=== PATIENT | female | born 1940 | race Caucasian/White ===

== ENCOUNTER 2018-01-10 16:21 | Emergency (ER) | payer MEDICARE, OTHER ==
--- NOTE | 2018-01-10 16:56 | ER Report ---
History and Physical Time Seen By MD: 16:35 Hx. of Stated Complaint: SOB X 2 DAYS, TRAVELING FROM [place] (ROSEANNE KRUEGER MD) HPI/ROS CHIEF COMPLAINT: shortness of breath HISTORY OF PRESENT ILLNESS: Patient is currently traveling from [place], planning on staying in [place] one week. She has been dealing with sinus congestion as well as kidney infection for which she states she was given Augmentin and last took one week ago. In the last week she has noted ongoing nonproductive cough, chest pressure that is intermittent and usually lasts one minute at a time, and shortness of breath that began intermittently 3 days ago today the shortness of breath and chest pressure have been generally constant. Patient notes shortness of breath that is worse with exertion as well as chest pressure, she also notes that she woke up last night with shortness of breath. The chest pressure is mild radiates to between her shoulder blades and she notes that it radiated down her left arm 2 days ago. 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 She was given nitroglycerin pills for anginal chest pain but has not taken them at all. Patient notes that all symptoms are worse with cough and has deep nonproductive coughs. She notes that last night she woke up with fever and chills. She has not had significant new abdominal pain, swelling in legs, urinary symptoms. REVIEW OF SYSTEMS: Constitutional: above Eyes: No discharge. ENT: sore throat Cardiovascular: above Respiratory: above Gastrointestinal: No abdominal pain, no vomiting. Genitourinary: No hematuria. Musculoskeletal: no new back pain Skin: No rashes. Neurological: No headache. (ROSEANNE KRUEGER MD) Allergies: Coded Allergies: codeine (Verified Adverse Reaction, Unknown, NAUSEA/VOMITING, 01/10/18) Uncoded Allergies: BETA BLOCKERS (Adverse Reaction, Unknown, HALLUCINATIONS, 01/10/18) Home Meds Unable to Obtain Active Prescriptions or Reported Meds Reviewed Nurses Notes: Yes (ROSEANNE KRUEGER MD) Constitutional Vital Sign - Last 24 Hours 01/10/18 01/10/18 01/10/18 01/10/18 16:29 16:30 16:45 17:00 Temp 98.2 Pulse 80 79 75 Resp 16 13 11 B/P (MAP) 209/112 213/93 (133) 194/81 (118) Pulse Ox 91 92 93 O2 Delivery Room Air 01/10/18 01/10/18 01/10/18 01/10/18 17:15 17:30 17:45 18:15 Pulse 75 70 71 71 Resp 27 24 23 11 B/P (MAP) 185/80 (115) Pulse Ox 90 91 92 92 01/10/18 01/10/18 01/10/18 01/10/18 18:30 18:45 19:00 19:15 Pulse 70 74 78 72 Resp 9 13 B/P (MAP) 178/89 (118) Pulse Ox 91 92 90 94 01/10/18 01/10/18 01/10/18 01/10/18 19:15 19:30 19:45 20:00 Pulse 71 71 71 Resp 19 10 22 B/P (MAP) 161/73 (102) 164/81 (108) Pulse Ox 94 95 95 O2 Flow Rate 1.0 01/10/18 01/10/18 01/10/18 20:15 20:30 21:00 Pulse 78 72 73 Resp 19 18 11 B/P (MAP) 164/74 (104) 175/81 (112) Pulse Ox 95 94 95 (ROSEANNE COHN MD) Physical Exam General Appearance: The patient is alert, has no immediate need for airway protection and no signs of toxicity. Eyes: Pupils equal and round no pallor or injection. ENT, Mouth: Mucous membranes are moist. Respiratory: There are no retractions, lungs are clear to auscultation. Pt has deep, nonproductive cough. Cardiovascular: Regular rate and rhythm. Gastrointestinal: Abdomen is soft and non tender, no masses, bowel sounds normal. Neurological: alert, oriented, nad Skin: Warm and dry, no rashes. Musculoskeletal: Neck is supple non tender. No carotid bruits Extremities are nontender, and have full range of motion. Mild bilateral edema DIFFERENTIAL DIAGNOSIS: After history and physical exam differential diagnosis was considered for chest pain including but not limited to myocardial ischemia, pericarditis pulmonary embolus, chest wall pain, pleural inflammation and pulmonary infectious causes.shortness of breath including but not limited to pulmonary infectious process, COPD, asthma, pulmonary embolus and congestive heart failure, aortic dissection (ROSEANNE KRUEGER MD) Medical Decision Making Data Points Result Diagram: 01/10/182 01/10/181651 Laboratory Hematology Test 01/10/18 16:52 10/7/18 18:24 01/10/18 20:27 Red Blood Count 5.04 M/uL (4.17-5.56) Mean Corpuscular Volume 74.8 fL (80.0-96.0) Mean Corpuscular Hemoglobin 24.3 pg (26.0-33.0) Mean Corpuscular Hemoglobin Concent 32.6 g/dL (32.0-36.0) Red Cell Distribution Width 16.1 % (11.5-14.5) Mean Platelet Volume 7.0 fL (7.2-11.1) Neutrophils (%) (Auto) 61.0 % (39.4-72.5) Lymphocytes (%) (Auto) 29.9 % (17.6-49.6) Monocytes (%) (Auto) 7.4 % (4.1-12.4) Eosinophils (%) (Auto) 0.9 % (0.4-6.7) Basophils (%) (Auto) 0.8 % (0.3-1.4) Nucleated RBC Relative Count (auto) 0.0 /100WBC Neutrophils # (Auto) 6.1 K/uL (2.0-7.4) Lymphocytes # (Auto) 3.0 K/uL (1.3-3.6) Monocytes # (Auto) 0.7 K/uL (0.3-1.0) Eosinophils # (Auto) 0.1 K/uL (0.0-0.5) Basophils # (Auto) 0.1 K/uL (0.0-0.1) Nucleated RBC Absolute Count (auto) 0.00 K/uL Peripheral Blood Smear No Y/N D-Dimer Quantitative (PE/DVT) 0.75 ug/ml (0-0.50) Sodium Level 141 mmol/L (137-145) Potassium Level 3.4 mmol/L (3.5-5.0) Chloride Level 103 mmol/L (98-107) Carbon Dioxide Level 25 mmol/L (22-31) Blood Urea Nitrogen 12 mg/dl (7-18) Creatinine 0.70 mg/dl (0.52-1.04) Glomerular Filtration Rate Calc > 60.0 Random Glucose 184 mg/dl (75-110) Calcium Level 9.2 mg/dl (8.4-10.2) Total Bilirubin 0.3 mg/dl (0.2-1.3) Aspartate Amino Transf (AST/SGOT) 19 U/L (0-35) Alanine Aminotransferase (ALT/SGPT) 30 U/L (0-56) Alkaline Phosphatase 81 U/L (0-126) B-Type Natriuretic Peptide 166 pg/ml (0-100) Total Protein 7.4 g/dl (6.3-8.2) Albumin 3.9 g/dl (3.5-5.0) Lipase 73 U/L (23-300) Urine Color Straw Urine Clarity Clear Urine pH 7.0 pH (4.8-9.5) Urine Specific [place] 1.027 Urine Protein Negative mg/dL (NEGATIVE) Urine Glucose (UA) Negative mg/dL (NEGATIVE) Urine Ketones Negative mg/dL (NEGATIVE) Urine Blood Negative (NEGATIVE) Urine Nitrite Negative (NEGATIVE) Urine Bilirubin Negative (NEGATIVE) Urine Urobilinogen Negative mg/dL (0.2-1.9) Urine Leukocyte Esterase Small (NEGATIVE) Urine RBC 1 /HPF (0-2/HPF) Urine WBC 15 /HPF (0-5/HPF) Urine Squamous Epithelial Cells None /LPF (</=FEW) Urine Bacteria Negative /HPF (NONE-FEW) Urine Mucus None /HPF (NONE-FEW) Troponin I 0.014 ng/ml Chemistry Test 01/10/18 16:52 01/10/18 18:24 01/10/18 20:27 White Blood Count 10.0 k/uL (4.5-11.0) Red Blood Count 5.04 M/uL (4.17-5.56) Hemoglobin 12.3 g/dL (12.0-16.0) Hematocrit 37.7 % (34.0-47.0) Mean Corpuscular Volume 74.8 fL (80.0-96.0) Mean Corpuscular Hemoglobin 24.3 pg (26.0-33.0) Mean Corpuscular Hemoglobin Concent 32.6 g/dL (32.0-36.0) Red Cell Distribution Width 16.1 % (11.5-14.5) Platelet Count 407 K/uL (150-450) Mean Platelet Volume 7.0 fL (7.2-11.1) Neutrophils (%) (Auto) 61.0 % (39.4-72.5) Lymphocytes (%) (Auto) 29.9 % (17.6-49.6) Monocytes (%) (Auto) 7.4 % (4.1-12.4) Eosinophils (%) (Auto) 0.9 % (0.4-6.7) Basophils (%) (Auto) 0.8 % (0.3-1.4) Nucleated RBC Relative Count (auto) 0.0 /100WBC Neutrophils # (Auto) 6.1 K/uL (2.0-7.4) Lymphocytes # (Auto) 3.0 K/uL (1.3-3.6) Monocytes # (Auto) 0.7 K/uL (0.3-1.0) Eosinophils # (Auto) 0.1 K/uL (0.0-0.5) Basophils # (Auto) 0.1 K/uL (0.0-0.1) Nucleated RBC Absolute Count (auto) 0.00 K/uL Peripheral Blood Smear No Y/N D-Dimer Quantitative (PE/DVT) 0.75 ug/ml (0-0.50) Glomerular Filtration Rate Calc > 60.0 Calcium Level 9.2 mg/dl (8.4-10.2) Total Bilirubin 0.3 mg/dl (0.2-1.3) Aspartate Amino Transf (AST/SGOT) 19 U/L (0-35) Alanine Aminotransferase (ALT/SGPT) 30 U/L (0-56) Alkaline Phosphatase 81 U/L (0-126) B-Type Natriuretic Peptide 166 pg/ml (0-100) Total Protein 7.4 g/dl (6.3-8.2) Albumin 3.9 g/dl (3.5-5.0) Lipase 73 U/L (23-300) Urine Color Straw Urine Clarity Clear Urine pH 7.0 pH (4.8-9.5) Urine Specific [place] 1.027 Urine Protein Negative mg/dL (NEGATIVE) Urine Glucose (UA) Negative mg/dL (NEGATIVE) Urine Ketones Negative mg/dL (NEGATIVE) Urine Blood Negative (NEGATIVE) Urine Nitrite Negative (NEGATIVE) Urine Bilirubin Negative (NEGATIVE) Urine Urobilinogen Negative mg/dL (0.2-1.9) Urine Leukocyte Esterase Small (NEGATIVE) Urine RBC 1 /HPF (0-2/HPF) Urine WBC 15 /HPF (0-5/HPF) Urine Squamous Epithelial Cells None /LPF (</=FEW) Urine Bacteria Negative /HPF (NONE-FEW) Urine Mucus None /HPF (NONE-FEW) Troponin I 0.014 ng/ml Coagulation Test 01/10/18 16:52 D-Dimer Quantitative (PE/DVT) 0.75 ug/ml Urinalysis Test 01/10/18 18:24 Urine Color Straw Urine Clarity Clear Urine pH 7.0 pH (4.8-9.5) Urine Specific [place] 1.027 Urine Protein Negative mg/dL (NEGATIVE) Urine Glucose (UA) Negative mg/dL (NEGATIVE) Urine Ketones Negative mg/dL (NEGATIVE) Urine Blood Negative (NEGATIVE) Urine Nitrite Negative (NEGATIVE) Urine Bilirubin Negative (NEGATIVE) Urine Urobilinogen Negative mg/dL (0.2-1.9) Urine Leukocyte Esterase Small (NEGATIVE) Urine RBC 1 /HPF (0-2/HPF) Urine WBC 15 /HPF (0-5/HPF) Urine Squamous Epithelial Cells None /LPF (</=FEW) Urine Bacteria Negative /HPF (NONE-FEW) Urine Mucus None /HPF (NONE-FEW) (ROSEANNE COHN MD) EKG/Imaging EKG Interpretation 12 lead EKG: Rhythm: normal sinus rhythm [place]: normal QRS: normal ST segments: < 5 mm depression 1, v6. No ST elevation [ ] Monitor Interpretation: Normal Sinus Rhythm Imaging X-ray: chest was obtained. I viewed the images myself on the PACS system. My interpretation of the images is: NACPD. The radiologist interpretation had no clinically significant variation from this interpretation. (ROSEANNE KRUEGER MD) Imaging FACILITY: [facility] PATIENT NAME: Jitendra Jenkins : 1940 MR: [id number] V: [id number] EXAM DATE: ORDERING PHYSICIAN: ROSEANNE KRUEGER TECHNOLOGIST: Location: [facility] Patient: Jitendra Jenkins : 1940 Visit/Account:[id number] Date of Sevice: 01/10/2018 EXAMINATION: CTA of the chest with IV contrast HISTORY: Shortness of breath. Elevated d-dimer. TECHNIQUE: Pulmonary embolus protocol - Thin axial CT images of the chest were obtained with IV contrast during maximal pulmonary arterial opacification. Reconstruction of the source data includes multiplanar 2D coronal and sagittal reconstructed images, and 3D coronal and sagittal MIP images. [employer] images have been stored on PACS. One of the following dose optimization techniques was utilized in the performance of this exam: Automated exposure control; adjustment of the mA and/or kV according to the patient's size; or use of an iterative reconstruction technique. Specific details can be referenced in the facility's radiology CT exam operational policy. Contrast: 75 mL of IV Isovue-370. COMPARISON: None. FINDINGS: Pulmonary arteries: The pulmonary arteries are moderately well opacified, without suspicious filling defect. Heart, aorta, and great vessels: Normal caliber thoracic aorta. Vascular calcifications, including coronary artery calcifications. Normal heart size. No pericardial effusion. Lungs and pleura: Mild scarring or atelectasis in the lung bases. Calcified granulomas in both lungs. No suspicious focal consolidation. The central airways are patent. No pleural effusion or pneumothorax. Mediastinum and ivelisse: Small hiatal hernia. Visualized upper abdomen: Calcified granulomas in the spleen. Cholecystectomy. Chest wall: Bilateral prepectoral breast implants. Bones: No acute osseous findings. Mild scattered degenerative changes along the thoracic spine. IMPRESSION: 1. No evidence of pulmonary embolism. 2. No other acute findings in the chest. 3. Mild scarring or atelectasis in the lung bases. 4. Small hiatal hernia. Report Dictated By: Julio Cunningham MD at 01/10/2018 6:16 PM Report E-Signed By: Julio Cunningham MD at 01/10/2018 6:26 PM WSN:[email or web address] (ROSEANNE COHN MD) ED Course/Re-evaluation ED Course 77-year-old female history of coronary artery disease status post CABG presents with cough, shortness breath, chills, chest pressure. Exam is nonfocal, and initial ED evaluation significant for a d-dimer which is positive. Given the recent road trip, concern for PE. CT ordered and patient at CT at time of turnover. Given chest pressure and history, recommend repeat troponin testing. With results of above we'll discuss with patient risks and benefits of admission versus discharge. (ROSEANNE KRUEGER MD) ED Course 01/10/2018 8:38:52 pm remained symptom-free CT scan negative for PE or other acute pathology. 2nd troponin being redrawn at this time. 01/10/2018 9:45:28 pm repeat troponin unchanged and negative. She remained symptom-free and wishes to go home. Plan at this time will be discharged home. Decision to Disposition Date: Jan 10, 2018 Decision to Disposition Time: 21:45 Turned Over 01/10/2018 6:27:34 pm Accepted patient at 6 PM this evening. Awaiting delta troponin as well as CT scan of the chest for PE. Patient is comfortable at this time no questions or concerns. (ROSEANNE COHN MD) Depart Departure Latest Vital Signs Vital Signs Date Time Temp Pulse Resp B/P (MAP) Pulse Ox O2 Delivery O2 Flow Rate FiO2 01/10/18 21:00 73 11 175/81 (112) 95 01/10/18 19:15 1.0 01/10/18 16:29 98.2 Room Air (ROSEANNE COHN MD) Impression: Primary Impression: Atypical chest pain Condition: Improved Disposition: HOME OR SELF-CARE New Scripts Unable to Obtain Active Prescriptions or Reported Meds Patient Instructions: Chest Pain (DC) Additional Instructions: Return to the emergency department if your symptoms return. ROSEANNE KRUEGER MD Jan 10, 2018 16:56 ROSEANNE COHN MD Jan 10, 2018 18:27
[2018-01-10 17:06] LABS: PLATELET COUNT, AUTOMATED 407 K/uL (150-450)
--- NOTE | 2018-01-10 17:21 | EKG ---
[place] [facility] [place] NAME: KRISS BURKS : [id number] MR: [id number] V: [id number] EXAM DATE: ORDERING PHYSICIAN: ROSEANNE KRUEGER TECHNOLOGIST: TIMOTHY Test Reason : SOB Blood Pressure : / mmHG Vent. Rate : 068 BPM Atrial Rate : 068 BPM P-R Int : 174 ms QRS Dur : 078 ms QT Int : 396 ms P-R-T Axes : -11 043 069 degrees QTc Int : 421 ms Normal sinus rhythm Nonspecific ST abnormality Abnormal ECG No previous ECGs available Confirmed by Kendell Beevrly ([id number]) on 01/11/2018 6:16:55 AM Referred By: PATI Confirmed By:Kendell Persaud
--- NOTE | 2018-01-10 17:28 | RADIOLOGY IMAGING REPORT ---
FACILITY: [facility] - [place] PATIENT NAME: Jitendra Jenkins : 1940 MR: [id number] V: [id number] EXAM DATE: ORDERING PHYSICIAN: ROSEANNE KRUEGER TECHNOLOGIST: Location: [facility] [place] Patient: Jitendra Jenkins : 1940 Visit/Account:[id number] Date of Sevice: 01/10/2018 EXAMINATION: Chest 2 Views HISTORY: Shortness of breath. Smoking history. COMPARISON: None. FINDINGS: The lungs are clear. No focal consolidation or pleural effusion. No pneumothorax. Sternotomy with postoperative cardiac changes. Normal heart size and pulmonary vascularity. Aortic calcification. No acute osseous findings in the chest. IMPRESSION: No evidence of acute cardiopulmonary disease. Report Dictated By: Julio Cunningham MD at 01/10/2018 5:24 PM Report E-Signed By: Julio Cunningham MD at 01/10/2018 5:25 PM WSN:[email or web address]
[2018-01-10] MEDS ORDERED: NS(*) 0.9% 50 ML BAG 50 ML ONE (17:46)
[2018-01-10] MEDS ORDERED: IOPAMIDOL 76% 75 ML INFUS BTL 75 ML ONE (17:46)
--- NOTE | 2018-01-10 18:29 | RADIOLOGY IMAGING REPORT ---
[place]AC[place] [facility] [place] NAME: Jitendra Jenkins : 1940 MR: [id number] V: [id number] EXAM DATE: ORDERING PHYSICIAN: ROSEANNE KRUEGER TECHNOLOGIST: Location: [facility] [place] Patient: Jitendra Jenkins : 1940 Visit/Account:[id number] Date of Sevice: 01/10/2018 EXAMINATION: CTA of the chest with IV contrast HISTORY: Shortness of breath. Elevated d-dimer. TECHNIQUE: Pulmonary embolus protocol - Thin axial CT images of the chest were obtained with IV con trast during maximal pulmonary arterial opacification. Reconstruction of the source data includes mul tiplanar 2D coronal and sagittal reconstructed images, and 3D coronal and sagittal MIP images. Repres entative images have been stored on PACS. One of the following dose optimization techniques was utilized in the performance of this exam: Autom ated exposure control; adjustment of the mA and/or kV according to the patient's size; or use of an i terative reconstruction technique. Specific details can be referenced in the facility's radiology C T exam operational policy. Contrast: 75 mL of IV Isovue-370. COMPARISON: None. FINDINGS: Pulmonary arteries: The pulmonary arteries are moderately well opacified, without suspicious filling defect. Heart, aorta, and great vessels: Normal caliber thoracic aorta. Vascular calcifications, including coronary artery calcifications. Normal heart size. No pericardial effusion. Lungs and pleura: Mild scarring or atelectasis in the lung bases. Calcified granulomas in both lung s. No suspicious focal consolidation. The central airways are patent. No pleural effusion or pneum othorax. Mediastinum and ivelisse: Small hiatal hernia. Visualized upper abdomen: Calcified granulomas in the spleen. Cholecystectomy. Chest wall: Bilateral prepectoral breast implants. Bones: No acute osseous findings. Mild scattered degenerative changes along the thoracic spine. IMPRESSION: 1. No evidence of pulmonary embolism. 2. No other acute findings in the chest. 3. Mild scarring or atelectasis in the lung bases. 4. Small hiatal hernia. Report Dictated By: Julio Cunningham MD at 01/10/2018 6:16 PM Report E-Signed By: Julio Cunningham MD at 01/10/2018 6:26 PM WSN:[email or web address]
[2018-01-10 21:30] VITALS: BP 171/84
== END 2018-01-10 21:54 | disposition home or self-care (01) ==
LOC: ER 16:28
DX: R07.89 Other chest pain (principal); R94.31 Abnormal electrocardiogram [ECG] [EKG]
CPT/HCPCS: 36415; 71046; 71275; 81001; 83690; 83880; 84484; 85025; 85379; 93005; 99284; J7050; Q9967; 82040; 82247; 82310; 82374; 82435; 82565; 82947; 84075; 84132; 84155; 84295; 84450; 84460; 84520